=== PATIENT | female | born 1965 | race Two or more races ===

== ENCOUNTER 2018-10-22 07:16 | Emergency (ER) | payer BC, OTHER ==
[~2018-10-22] VITALS: Ht 172.7 cm; Wt 95.3 kg
[2018-10-22 07:55] VITALS: BP 132/86
[2018-10-22] MEDS ORDERED: HYDROcodone-ACET 5/325MG TAB PO ONE (08:15)
[2018-10-22] MEDS ORDERED: KETOROLAC TROMETH 60MG/2ML VIAL IM ONE (08:15)
== END 2018-10-22 09:08 | disposition home or self-care (01) ==
LOC: ER 07:16
DX: M25.512 Pain in left shoulder (principal); M54.2 Cervicalgia; M25.552 Pain in left hip; Z90.710 Acquired absence of both cervix and uterus; V43.52XA Car driver injured in collision with other type car in traffic accident, initial encounter; Y93.89 Activity, other specified; Y99.8 Other external cause status; Y92.410 Unspecified street and highway as the place of occurrence of the external cause
CPT/HCPCS: 73030; 96372; 99283; J1885

== ENCOUNTER 2021-06-13 23:44 | Emergency (ER) | payer BC ==
[~2021-06-13] VITALS: Ht 172.7 cm; Wt 99.8 kg
[2021-06-14] MEDS ORDERED: HYDROmorphone HCL 2 MG/ML VL IV ONE
[2021-06-14] MEDS ORDERED: ONDANSETRON HCL 4 MG/2 ML VIAL IV ONE
[2021-06-14] MEDS ORDERED: SODIUM CHLORIDE 0.9% 1,000 ML IV ONE (00:15)
[2021-06-14] MEDS ORDERED: KETAMINE 50mg/ML 10ml Vial (500mg/10ml) IV ONE ×2 (00:15→01:00)
[2021-06-14 03:00] VITALS: BP 104/61
[2021-06-14] MEDS ORDERED: KETOROLAC TROMETH 30 MG/ML 1ML VIAL IV ONE (03:30)
[2021-06-14] MEDS ORDERED: fentaNYL CITRATE 100 MCG/2 ML VL IV ONE (03:30)
== END 2021-06-14 03:51 | disposition home or self-care (01) ==
LOC: EDBD 23:44 → ER 23:47
DX: S82.842A Displaced bimalleolar fracture of left lower leg, initial encounter for closed fracture (principal); S82.832A Other fracture of upper and lower end of left fibula, initial encounter for closed fracture; E11.9 Type 2 diabetes mellitus without complications; Z90.710 Acquired absence of both cervix and uterus; W18.39XA Other fall on same level, initial encounter; Y93.89 Activity, other specified; Y92.89 Other specified places as the place of occurrence of the external cause; Y99.8 Other external cause status
CPT/HCPCS: 27810; 73590; 73610; 73630; 96374; 96375; 99285; J1170; J1885; J2405; J3010; J7030; 99152